=== PATIENT | male | born 1975 | race Asian ===

== ENCOUNTER 2021-07-28 15:17 | Emergency (ER) | payer BC ==
[~2021-07-28] VITALS: Ht 172.7 cm; Wt 73.0 kg
[2021-07-28] MEDS ORDERED: SODIUM CHLORIDE 0.9% 1,000 ML IV ONE (15:45)
[2021-07-28] MEDS ORDERED: ASPIRIN 81MG TABLET PO ONE (15:45)
[2021-07-28] MEDS ORDERED: LORAZEPAM 2MG/ML CPJ IV ONE (15:45)
[2021-07-28] MEDS ORDERED: CEFTRIAXONE 1 G PREMIX 50 ML IV ONE (16:00)
[2021-07-28 16:10] LABS: BASOPHILS % 0.8 % (0.0-2.0); EOSINOPHILS % 5.4 % (0.0-5.0); HEMATOCRIT. 45.8 % (42.0-52.0); HEMOGLOBIN. 15.4 g/dL (14.0-18.0); LYMPHOCYTES % 23.4 % (20.0-50.0); MEAN CORPUSCULAR HEMOGLOBIN 29.7 pg (28.0-32.0); MEAN CORPUSCULAR VOLUME 88.4 fL (80.0-94.0); MEAN PLATELET VOLUME 7.3 fl (7.4-10.4); MONOCYTES % 8.3 % (2.0-8.0); NEUTROPHILS % 62.1 % (40.0-76.0); PLATELET 283 x1000/uL (130-400); RED BLOOD CELL COUNT 5.18 mill/uL (4.7-6.1); RED CELL DISTRIBUTION WIDTH 13.8 % (11.6-14.6)
[2021-07-28 16:16] LABS: CHLORIDE 106 mEq/L (98-107)
[2021-07-28 16:22] LABS: ETHANOL BLOOD < 10 mg/dL
[2021-07-28 17:14] LABS: *AMPHETAMINES SCREEN URINE PRESUMTIVE POSITIVE (NEGATIVE); *BARBITURATES SCREEN URINE NEGATIVE (NEGATIVE); *BENZODIAZEPINES SCREEN URINE NEGATIVE (NEGATIVE); *COCAINE SCREEN URINE NEGATIVE (NEGATIVE); CANNABINOID URINE SCREEN NEGATIVE (NEGATIVE); METHADONE URINE SCREEN NEGATIVE (NEGATIVE); OPIATES URINE SCREEN NEGATIVE (NEGATIVE); PHENCYCLIDINE URINE SCREEN NEGATIVE (NEGATIVE)
[2021-07-28] MEDS ORDERED: CEPH500T MT (18:48)
[2021-07-28] MEDS ORDERED: MUPI1OIN4 TP (18:49)
[2021-07-28 18:59] VITALS: BP 150/85
== END 2021-07-28 19:02 | disposition home or self-care (01) ==
LOC: ER 15:17
DX: F15.129 Other stimulant abuse with intoxication, unspecified (principal); R00.2 Palpitations; L01.00 Impetigo, unspecified; R00.0 Tachycardia, unspecified
CPT/HCPCS: 36415; 71045; 80053; 80305; 80320; 83880; 84484; 85025; 93005; 96365; 96375; 99285; J0696; J2060; J7030; G0480